=== PATIENT | female | born 1975 | race Asian ===

== ENCOUNTER 2020-11-08 08:06 | Day surgery (SDC) | payer OTHER ==
[2020-11-08 08:12] LABS: Specific Gravity 1.025 (1.005-1.030); Urine Appearance CLEAR; Urine Bilirubin NEGATIVE (NEG); Urine Blood NEGATIVE (NEG); Urine Color YELLOW; Urine Glucose NEGATIVE (NEG); Urine Microscopic Reflex NO UMIC; Urine Protein NEGATIVE (NEG); Urine Specific Gravity 1.025 (1.005-1.030); Urine Urobilinogen 0.2 mg/dL (0.2-1.0)
--- OUTSIDE RECORDS SUMMARY | 2020-11-08 08:12 | XMS REPORT | Clinical Summary ---
:1975 Author Organization [facility] Address [address] [place] [address] Care Team Providers Name Role Phone Florian Redd MD Primary Care Provider Allergies No Known Active Allergies Medications Medication Sig Dispensed Refills Start Date End Date Status etonogestrel-ethinyl 0 11/13/2019 Active estradiol (NUVARING) 0.12-0.015 mg/24 hr vaginal ring triamcinolone Apply to affected 15 g 0 12/27/2019 Active (KENALOG) 0.1 % cream area twice daily. etonogestreL-ethinyl NuvaRing 0.12 mg-0.015 mg/24 hr vaginal 0 Active estradioL (NUVARING) INSERT ONE RING VAGINALLY UTD 0.12-0.015 mg/24 hr vaginal ring ibuprofen-famotidine Duexis 800 mg-26.6 mg tablet 0 Active (DUEXIS) 800-26.6 mg Take 1 tablet 3 times a day by oral route as nee ded. tablet atorvastatin daily. 0 Active (LIPITOR) 10 MG tablet terconazole (TERAZOL 0 12/27/2019 Active 7) 0.4 % vaginal cream triamcinolone 0 12/27/2019 Activ e (KENALOG) 0.1 % cream vitamin B complex (B Take by mouth. 0 Active COMPLEX-VITAMIN B12 ORAL) BIOTIN ORAL Take by mouth. 0 Act adama docosahexaenoic Take by mouth. 0 Active acid/epa (FISH OIL ORAL) etonogestreL-ethinyl Insert 1 ring 1 each 11 01/16/2020 Active estradioL (NUVARING) intravaginally and 0.12-0.015 mg/[address] for vaginal ring 3 consecutive weeks, then remove for 1 week. Insert new ring afterwards. terconazole (TERAZOL Insert 1 applicator 45 g 0 0 7) 0.4 % vaginal into the vagina 0 cream nightly for 7 days. fluconazole Take 1 tablet (150 2 tablet 0 01/16/2020 01/16/20 2 (DIFLUCAN) 150 MG mg total) by mouth 0 tablet once for 1 dose. May repeat an additional dose in 1 week, if symptoms persist. amoxicillin-pot Take 1 tablet (500 14 tablet 0 01/20/2020 clavulanate mg total) by mouth 0 (AUGMENTIN) 500-125 2 (two) times a day mg per tablet for 7 days. ciprofloxacin (CIPRO) Take 1 tablet (500 14 tablet 0 0 500 MG tablet mg total) by mouth 0 2 (two) times a day for 7 days. phenazopyridine Take 1 tablet (200 6 tablet 0 02/07/202001/21 (PYRIDIUM) 200 MG mg total) by mouth 0 tablet 3 (three) times a day as needed for bladder spasms for up to 2 days. Active Problems No known active problems Encounters Date Type Specialty Care Team Description 08/08/2020 Hospital Encounter Radiology Keila Brambila DO 08/08/2020 Travel 07/31/2020 Travel 02/07/2020 Office Visit Obstetrics and Audi Pagan Urinary tract infection with hematuria, site unspecified (Primary Dx); Gynecology MD Alexi Dysuria 02/07/2020 Travel 01/20/2020 Orders Only Obstetrics and Keila Brambila DO Gynecology 01/16/2020 Office Visit Obstetrics and Keila Brambila DO Encounter f or annual routine gynecological examination (Primary Dx); Gynecology Breast cancer s creening by mammogram; Encounter for s urveillance of vaginal ring hormonal contraceptive device; Dysuria 12/27/2019 Office Visit Obstetrics and Keila Brambila DO Vaginal irr itation (Primary Dx); Gynecology Acute vaginitis ; Painful coitus, female; Dysuria after 11/08/2019 Surgical History Surgery Date Site/Laterality Comments AUGMENTATION, BREAST, WITH PROSTHETIC IMPLANT Medical History Medical History Date Comments High cholesterol Family History Medical History Relation Name Comments Hyperlipidemia Father Hypertension Father Hyperlipidemia Mother Hypertension Mother Relation Name Status Comments Father Alive Mother Alive Social History Tobacco Use Types Packs/Day Years Used Date Never Smoker Smokeless Tobacco: Never Used Alcohol Use Drinks/Week oz/Week Comments Never Alcohol Habits Answer Date Recorded How often do you have a drink containing alcohol? Never 12/27/2019 How many drinks containing alcohol do you have on a typical Not asked day when you are drinking? How often do you have six or more drinks on one occasion? No t asked Sex Assigned at Date Recorded Not on file Obstetrics History Grav Para Term Pre Abrt (TAB) (SAB) (Ect) Mult Lvng Comments 4 4 4 4 Date Outcome GA Total Labor/2nd/3rd Weight Sex Delivery Anes PTL Jessica A 1 A5 Name Clin Labor Term Term Term Term Last Filed Vital Signs Vital Sign Reading Time Taken Comments Blood Pressure 126/83 02/07/2020 3:20 PM CDT Pulse 85 01/16/2020 8:48 AM WEB ADMINISTRATOR Temperature - - Respiratory Rate 14 01/16/2020 8:48 AM WEB ADMINISTRATOR Oxygen Saturation - - Inhaled Oxygen Concentration - - Weight 61.2 kg (135 lb) 02/07/2020 3:20 PM CDT Height 157.5 cm (5' 2") 02/07/2020 3:20 PM CDT Body Mass Index 24.69 02/07/2020 3:20 PM CDT Plan of Treatment Health Maintenance Due Date Last Done Comments COVID-19 VACCINE (#1) 1990 INFLUENZA VACCINE 06/23/2020 CERVICAL CANCER SCREENING 01/16/2023 01/16/2020 Procedures Procedure Name Priority Date/Time Associated Comments Diagnosis MAMMO BREAST SCREEN Routine 08/08/2020 12:09 Breast cancer Res ults for this TOMOSYNTHESIS PM CDT screening by procedure are in BILATERAL mammogram the results section. URINALYSIS, AUTOMATED Routine 02/07/2020 3:33 Urinary tract R esults for this WITH MICROSCOPY PM CDT infection with procedure are in hematuria, site the results unspecified section. URINE CULTURE Routine 02/07/2020 3:33 Urinary tract Results f or this PM CDT infection with procedure are in hematuria, site the results unspecified section. CHLAMYDIA/N. Routine 01/16/2020 10:44 Results for this GONORRHOEAE RNA, TMA AM WEB ADMINISTRATOR procedu re are in the results section. THINPREP TIS PAP Routine 01/16/2020 10:44 Results for this REFLEX HPV MRNA E6/E7 AM WEB ADMINISTRATOR proced ure are in the results section. URINALYSIS, COMPLETE, Routine 01/16/2020 9:48 Dysuria Re sults for this WITH REFLEX TO CULTURE AM WEB ADMINISTRATOR proce dure are in the results section. URINE CULTURE Routine 01/16/2020 9:48 Results fo r this AM WEB ADMINISTRATOR procedure are i n the results section. URINE CULTURE SCREEN Routine 01/16/2020 9:48 Res ults for this RESULT AM WEB ADMINISTRATOR procedure are i n the results section. POC URINALYSIS Routine 01/16/2020 9:07 Dysuria Results f or this DIPSTICK AM WEB ADMINISTRATOR procedure are i n the results section. SURESWAB(R), Routine 12/27/2019 5:22 Results for this CANDIDIASIS, PCR PM WEB ADMINISTRATOR procedure a re in (REFLEX) the results section. SURESWAB(R) Routine 12/27/2019 5:22 Results for this TRICHOMONAS VAGINALIS PM WEB ADMINISTRATOR proced ure are in RNA, QL, TMA the results section. SURESWAB(R) BACTERIAL Routine 12/27/2019 5:22 Re sults for this VAGINOSIS DNA, QN, PCR PM WEB ADMINISTRATOR proce dure are in (REFLEX) the results section. CHLAMYDIA/N. Routine 12/27/2019 5:22 Results for this GONORRHOEAE RNA, TMA PM WEB ADMINISTRATOR procedu re are in (REFLEX) the results section. URINALYSIS, COMPLETE, Routine 12/27/2019 5:04 Dysuria Re sults for this WITH REFLEX TO CULTURE PM WEB ADMINISTRATOR proce dure are in the results section. URINE CULTURE Routine 12/27/2019 5:04 Results fo r this PM WEB ADMINISTRATOR procedure are i n the results section. URINE CULTURE SCREEN Routine 12/27/2019 5:04 Res ults for this RESULT PM WEB ADMINISTRATOR procedure are i n the results section. POC URINALYSIS Routine 12/27/2019 2:56 Dysuria Results f or this DIPSTICK PM WEB ADMINISTRATOR procedure are i n the results section. after 11/08/2019 Results Mammo Breast Screen Tomosynthesis Bilateral (08/08/2020 12:09 PM CDT) Specimen Impressions Performed At There is no mammographic evidence of mal ignancy. HM RADIANT Continued monitoring of the clinical examination and annual mammography in 1 year is recommended. BI-RADS Category 1: Negative Workstation Name: [id number] A NEGATIVE X-RAY REPORT SHOULD NOT DELAY BIOPSY IF A D OMINANT OR CLINICALLY SUSPICIOUS MASS IS PRESENT. NOT ALL CANCERS ARE IDENTIFIED BY X-RAY. Narrative Performed At [facility] Bilateral Tomosynthesis Screening HISTORY: Patient is 45 years old and is seen for screening. The patient has a history of bilateral Implants/Augmentation at age 28. The patient has no family history of breast cancer. The patient has no cu rrent palpable breast complaints. FILMS COMPARED: No prior imaging studies are available f or comparison. MAMMOGRAM FINDINGS: The breast tissue is heterogeneously dense, which may obscure detection of small masses. There are bilateral silicone gel implant s. No suspicious masses, calcifications or other abnormalities are seen. Procedure Note Interface, Radiology Results Incoming - 08/08/2020 3:35 PM CDT PROCEDURE: Bilateral Tomosynthesis Screening HISTORY: Patient is 45 years old and is seen for screening. The patient has a history of bilateral Implants/Augmentation at age 28. The patient has no family history of breast cancer. The patient has no current palpable breast complaints. FILMS COMPARED: No prior imaging studies are available f or comparison. MAMMOGRAM FINDINGS: The breast tissue is heterogeneously den se, which may obscure detection of small masses. There are bilateral silicone gel implant s. No suspicious masses, calcifications or other abnormalities are seen. IMPRESSION: There is no mammographic evidence of mal ignancy. Continued monitoring of the clinical exa mination and annual mammography in 1 year is recommended. BI-RADS Category 1: Negative Workstation Name: [id number] A NEGATIVE X-RAY REPORT SHOULD NOT DELAY BIOPSY IF A DOMINANT OR CLINICALLY SUSPICIOUS MASS IS PRESENT. NOT ALL CANCERS ARE IDENTIFIED BY X-RAY. Performing Organization Address City/State/ZIP Code Phon e Number [facility] [address] [place] [address] Urinalysis, automated with microscopy (02/07/2020 3:33 PM CDT) Color, UA YELLOW YELLOW [facility] [place] Appearance CLOUDY (A) CLEAR [facility] [place] Specific gravity, 1.007 1.001 - 1.035 [facility] urine [place] pH, urine 7.5 5.0 - 8.0 [facility] [place] Glucose, urine NEGATIVE NEGATIVE [facility] [place] Bilirubin, UA NEGATIVE NEGATIVE [facility] [place] Ketones, UA NEGATIVE NEGATIVE [facility] [place] Occult blood, urine 2+ (A) NEGATIVE [facility] [place] Protein, UA NEGATIVE NEGATIVE [facility] [place] Nitrite, UA NEGATIVE NEGATIVE [facility] [place] Leukocyte esterase, 3+ (A) NEGATIVE [facility] UA [place] WBC, UA 40-60 (A) < OR = 5 /HPF [facility] [place] RBC, UA 0-2 < OR = 2 /HPF [facility] [place] Squamous epithelial 0-5 < OR = 5 /HPF [facility] cells, UA [place] Bacteria, UA FEW (A) NONE SEEN /HPF [facility] [place] Hyaline casts, UA NONE SEEN NONE SEEN /LPF [facility] [place] Specimen Urine Resulting Agency Comment Performing Organization Information: Site ID: [id number] Name: [facility] Address: [address] [place] [phone] Director: Krzysztof Monreal Performing Organization Address City[place]State[place] [facility] [place] Number [facility] [place] [address] Urine culture (02/07/2020 3:33 PM CDT)Only the most recent of3 resultswithin the time period is included. Pathologist Sig nature Source URINE [facility] [place] Status FINAL [facility] [place] Result SEE NOTEComment: No [facility] Growth [place] Specimen Urine Resulting Agency Comment Performing Organization Information: Site ID: RGA Name: [facility] Address: [address] [place] [phone] Director: Krzysztof Monreal Performing Organization Address City/[facility] Phon e Number [facility] [place] [address] CHLAMYDIA/N. GONORRHOEAE RNA, TMA (01/16/2020 10:44 AM WEB ADMINISTRATOR) Chlamydia NOT DETECTED NOT DETECTED [facility] trachomatis RNA, [facility] TMA ING II Neisseria NOT DETECTED NOT DETECTED [facility] gonorrhoeae RNA, [facility] TMA ING II (Always message) [facility] Comment: [facility] The analytical performance characteristics of this ING II assay, when used to test SurePath(TM) specimens have b een determined by [facility]. The modifications hav e not been cleared or approved by the FDA. This assay villegas s been validated pursuant to the CLIA regulations and is used for clinical purposes. For additional information, please refer to https://education.[employer]/faq/BKM591 (This link is being provided for information/ educational purposes only.) Specimen Resulting Agency Comment Performing Organization Information: Site ID: [id number] Name: [facility] Address: [address] [place] [address] Director: Dr. Krzysztof shane Performing Organization Address City/[facility] Phon e Number [facility] [address] [facility] [place] [address] THINPREP TIS PAP REFLEX HPV mRNA E6/E7 (01/16/2020 10:44 AM WEB ADMINISTRATOR) Clinical information None given [facility] [place] Date of last menstrual NONE GIVEN [facility] [place] Prev. pap: NONE GIVEN [facility] [place] Prev. bx: NONE GIVEN [facility] [place] Source None given [facility] [place] Statement of adequacy [facility] Comment: DIAGNOSTICS Satisfactory for evaluation. [place] Endocervical/transformation zone component present. Age and/or menstrual status not provided Interpretation/result: Comment: Negative for [facility] intraepithelial [facility] lesion or malignancy. [facility] Comment [facility] Comment: DIAGNO[facility]ICS This Pap test has been evaluated with computer [facility]DE assisted technology. Tip of collection device in vial [employer] Welding Machine Operator [facility] Comment: DIAGNOSTICS AMT, CT(ASCP) [place] CT screening location: [place] [id number] Comment [facility] Comment: DI[facility]ICS EXPLANATORY NOTE: [place] The Pap is a screening test for cervical cancer. It is not a diagnostic test and is subject to false negative and false positive results. It is most reliable when a satisfactory sample, regularly obtained, is submitted with relevant clinical findings and history, and when the Pap result is evaluated along with historic and current clinical information. Specimen Resulting Agency Comment Performing Organization Information: Site ID: [id number] Name: [facility] Address: [address] [place] [phone] Director: Krzysztof Monreal Performing Organization Address City/[facility] Phon e Number [facility] [address] [address] URINALYSIS, COMPLETE, WITH REFLEX TO CULTURE (01/16/2020 9:48 AM WEB ADMINISTRATOR)Only the most recent of2 resultswithin the time period is included. Color, UA YELLOW YELLOW [facility] [place] Appearance SLIGHTLY CLOUDY CLEAR [facility] (A) [place] Specific gravity, 1.027 1.001 - 1.035 [facility] urine [place] pH, urine 6.0 5.0 - 8.0 [facility] [place] Glucose, urine NEGATIVE NEGATIVE [facility] [place] Bilirubin, UA NEGATIVE NEGATIVE [facility] [place] Ketones, UA NEGATIVE NEGATIVE [facility] [place] Occult blood, NEGATIVE NEGATIVE [facility] urine [place] Protein, UA NEGATIVE NEGATIVE [facility] [place] Nitrite, UA POSITIVE (A) NEGATIVE [facility] [place] Leukocyte TRACE (A) NEGATIVE [facility] esterase, UA [place] WBC, UA 0-5 < OR = 5 /HPF [facility] [place] RBC, UA NONE SEEN < OR = 2 /HPF [facility] [place] Squamous 10-20 (A) < OR = 5 /HPF [facility] epithelial cells, [place] UA Bacteria, UA FEW (A) NONE SEEN /HPF [facility] [place] Hyaline casts, UA NONE SEEN NONE SEEN /LPF [facility] [place] Comment FEW MUCOUS [facility] THREADS [place] Note: [facility] Comment: [place] This urine was analyzed for the presence of WBC, RBC, bacteria, casts, and other formed elements. Only those elements seen were reported. Specimen Urine Resulting Agency Comment Performing Organization Information: Site ID: [facility] Name: [facility] Address: [address] [place] [phone] Director: Krzysztof Monreal Performing Organization Address [facility] Phon [place] [address] Urine culture screen result (01/16/2020 9:48 AM WEB ADMINISTRATOR)Only the most recent of2 resultswithin the time period is included. Pathologist Sig nature Reflex CULTURE INDICATED - [facility] RESULTS TO FOLLOW [place] Specimen Resulting Agency Comment Performing Organization Information: Site ID: [facility] Name: [facility] Address: [address] [place] [phone] Director: Krzysztof Monreal Performing Organization Address [facility] Ph[place] [address] POC urinalysis dipstick (01/16/2020 9:07 AM WEB ADMINISTRATOR)Only the most recent of2 resultswithin the time period is included. Pathologist Sig nature Glucose urine, POC Negative Negative Bilirubin urine, POC Negative Negative Ketones urine, POC 1+ (A) Negative Specific gravity urine, 1.020 1.005 - 1.030 POC Blood urine, POC Large (A) Negative pH urine, POC 6.0 5.0, 5.5, 6.0, 6.5, 7.0, 7.5, 8.0, 8.5 Protein urine, POC Negative Negative Urobilinogen urine, POC <2.0 <2.0 Nitrite urine, POC Negative Negative Leukocyte esterase Negative Negative urine, POC Specimen Urine SURESWAB(R), CANDIDIASIS, PCR (12/27/2019 5:22 PM WEB ADMINISTRATOR) C. albicans, DNA DETECTED (A) [facility] C. glabrata, DNA NOT DETECTED [facility] C. tropicalis, NOT DETECTED [facility] DNA C. parapsilosis, NOT DETECTED [facility] DNA Comment: REFERENCE RANGE: NOT DETECTED Methodology: Real-Time PCR This test was developed and its analytical performance characteristics have been determined by [facility]. It has not been cleared or approve d by FDA. This assay has been validated pursuant to the CLIA regulations and is used for clinical purposes. Specimen Resulting Agency Comment Performing Organization Information: Site ID: [id number] Name: [facility] Address: [address] [place] [phone] Director: Emmett Lozano MD Performing Organization Address City/[facility] Phon e Number [facility] [facility] [employer] [address] [place] [address] [phone] SURESWAB(R) TRICHOMONAS VAGINALIS RNA, QL, TMA (Reflex) (12/27/2019 5:22 PM WEB ADMINISTRATOR) Sureswab(r) NOT DETECTED [facility] trichomonas Comment: vaginalis RNA, QL, TMA REFERENCE RANGE: NOT DETECTED Methodology: Retail Financial Analyst Mediated Amplification (TMA ) For additional information, please refer to http://education.[employer]/faq/Jer garza (This link is being provided for informational/educati onal purposes only.) Specimen Resulting Agency Comment Performing Organization Information: Site ID: [id number] Name: [facility] Address: [address] [place] [phone] Director: Emmett Lozano MD Performing Organization Address City/State/ZIP Code Phon e Number [facility] [address] [place] [address] [facility](R) BACTERIAL VAGINOSIS DNA, QN, PCR (12/27/2019 5:22 PM WEB ADMINISTRATOR) Lactobacillus NOT DETECTED Log [facility] species (cells/mL) Atopobium vaginae NOT DETECTED Log [facility] (cells/mL) Megasphaera species NOT DETECTED Log [facility] (cells/mL) Gardnerella NOT DETECTED Log [facility] vaginalis (cells/mL) BV category NOT SUPPORTIVE [facility] Comment: REFERENCE RANGE: BV Category: NOT SUPPORTIVE Methodology: Real-Time PCR NOT SUPPORTIVE OF BV: The pattern of results is not supportive of a diagnosis of BV: 1) Presence of Lactobacillus spp., G. vaginalis levels less than 6.0 log cells/mL, and absence of A. vaginae and Megasphaer a spp; or 2) Absence of all targeted organisms; or 3) Ab sence of Lactobacillus spp. plus G. vaginalis detected at le vels less than 6.0 log cells/mL and absence of A. vaginae a nd Megasphaera spp. EQUIVOCAL FOR BV: The pattern of results is neither supportive nor not supportive of a diagnosis of BV. The patient may be in transition into or out of BV: Presence of Lactobacillus spp. plus G. vaginalis (greater or equal to 6.0 log cells/mL) and/or one of the other BV-associated pathogens. SUPPORTIVE OF BV: The pattern of results is supportive of a diagnosis of BV: Absence of Lactobacillus spp. and presence of G. vaginalis greater than or equal to 6.0 log cells/mL and/or one or both of the other BV-associated pathogens. Concentration for Lactobacilli (L. acidophilus/crispat us, L. jensenii) are collectively reported under the term "Lactobacillus spp.", as these species are among the peroxide producing Lactobacilli thought to be protecti ve against bacterial vaginosis. Atopobium vaginae, Megasp haera spp., and Gardnerella (greater than 6.0 log cells/mL) have been associated with vaginosis when present in the abs ence of peroxidase producing Lactobacilli. This test was developed and its analytical performance characteristics have been determined by [facility]. It has not been cleared or approve d by FDA. This assay has been validated pursuant to the CLIA regulations and is used for clinical purposes. Specimen Resulting Agency Comment Performing Organization Information: Site ID: [id number] Name: [facility] Address: [address] [place] [phone] Director: Emmett Lozano MD Performing Organization Address [facility] Phon e Number [facility] [address] [place] [address] [phone] CHLAMYDIA/N. GONORRHOEAE RNA, TMA (12/27/2019 5:22 PM WEB ADMINISTRATOR) Chlamydia NOT DETECTED [facility] trachomatis RNA, TMA Neisseria NOT DETECTED [facility] gonorrhoeae RNA, Comment: TMA REFERENCE RANGE: NOT DETECTED Methodology: Retail Financial Analyst Mediated Amplification (TMA ) to detect RNA. The analytical performance characteristics of this ass ay, when used to test SurePath(TM) specimens have been det ermined by [facility]. The modificat ions have not been cleared or approved by the FDA. This ass ay has been validated pursuant to the CLIA regulations an d is used for clinical purposes. For additional information, please refer to https://education.[employer]/faq/JSA485 (This link is being provided for informational/ educational purposes only.) Specimen Resulting Agency Comment Performing Organization Information: Site ID: [id number] Name: [facility] Address: [address] [place] [phone] Director: Emmett Lozano MD Performing Organization Address [facility] Phon e Number [employer] [facility] [employer] [address] [place] [address] [phone] after 11/08/2019 Advance Directives For more information, please contact: [phone] Type Date Recorded Patient Chief Science Officer Explanati on Advance Directives, Living Will and Medical Power of Terrestrial Ecologist
--- OUTSIDE RECORDS SUMMARY | 2020-11-08 08:13 | XMS REPORT | Continuity of Care Document ---
:1975 Author Organization [facility] t Address [address] [place] [address] Care Team Providers Name Role Phone Florian Redd MD Primary Care Physician Patty CARUSO Attending Clinician Alexi Gray MD Attending Clinician Payers Payer Name Policy Type Policy Effective Date Expiration Date [facility] Number BCBSBCBS CHOICE [id number] 2015 Dante PPO/FEDERAL 00:00:00 Tenriism EMPL [id number] 2015-Presen tPPO Problems This patient has no known problems. Allergies, Adverse Reactions, Alerts This patient has no known allergies or adverse reactions. Family History Family Member Diagnosis Comments Start Date Stop Date Source Natural father Hyperlipidemia [place] [facility] Natural father Hypertension Dante Tenriism Natural mother Hyperlipidemia [place] [facility] Natural mother Hypertension Dante Tenri[facility] Social History Social Habit Start Date Stop Date Quantity Comments Source History [facility] Meth odist Alcohol Std Drinks History [facility] Meth odist Alcohol Binge Sex Assigned At [facility] ethodist Tobacco use and 2020-02-07 2020-02-07 Never used [facility] ethodist exposure 00:00:00 00:00:00 Alcohol intake 2020-02-07 2020-02-07 [facility] thodist 00:00:00 00:00:00 non-drinker (finding) History [facility] 2019-12-27 2019-12-27 1 Dante Meth odist Alcohol Frequency 00:00:00 00:00:00 Smoking Status Start Date Stop Date Source Never smoker Dante Methodis t Medications Ordered Filled Start Stop Current Ordering Indication Dosage Frequency Signature Comments Components Source Medication Medication Date Date Medication? Clinician (SIG) Name Name BIOTIN ORAL 2020-0 Yes Take by Ananyasabrina harmon 3-17 mouth. Methodi 15:24: st 17 docosahexae 2020-0 Yes Take by Ananya cameronkaushik noic 3-17 mouth. Methodi acid/epa 15:24: st (FISH OIL 17 ORAL) ciprofloxac 2020-0 2020- No 500mg Q.5D Take 1 Kevyn williamson in (CIPRO) 317 03-24 tablet Method i 500 MG 00:00: 23:59 ([address] tablet 00 :00 total) by mouth 2 (two) times a day for 7 days. phenazopyri 2020-0 2020- No 200mg Q.[id number] Take 1 [facility] dine 17 -19 [id number] tablet Method i (PYRIDIUM) 00:00: 23:59 3D ([address] 200 MG 00 :00 total) by tablet mouth 3 (three) times a day as needed for bladder spasms for up to 2 days. amoxicillin 2019-0 2020- No 500mg Q.5D Take 1 Kevyn williamson -pot 2-28 -06 tablet Methodi clavulanate 00:00: 23:59 ([address] (AUGMENTIN) 00 :00 total) by 500-125 mg mouth 2 per tablet (two) times a day for 7 days. etonogestre 2020-0 Yes NuvaRing [place] L-ethinyl 2-24 0.12 Methodi estradioL 08:54: mg-0.015 st (NUVARING) 34 mg/24 hr 0.12-0.015 vaginal mg/24 hr INSERT ONE vaginal RING ring VAGINALLY UTD ibuprofen-f 2020-0 Yes Duexis 800 [place] amotidine 2-24 mg-26.6 mg Meth marce (DUEXIS) 08:54: tablet st 800-26.6 mg 34 Take 1 tablet tablet 3 times a day by oral route as needed. atorvastati 2020-0 Yes Q24H daily. [place] (LIPITOR) 2-24 Methodi 10 MG 08:54: st tablet 34 vitamin B 2020-0 Yes Take by Raquel on complex (B 2-24 mouth. Methodi COMPLEX-VIT 08:54: st SHEPARD B12 34 ORAL) etonogestre 2020-0 Yes Insert 1 [place] L-ethinyl 2-24 ring Methodi estradioL 00:00: intravagin st (NUVARING) 00 ally and 0.12-0.015 leave in mg/[address] for vaginal 3 ring consecutiv e weeks, then remove for 1 week. Insert new ring afterwards . fluconazole 2020- No 150mg Take 1 Kevyn williamson (DIFLUCAN) 2-24 02-24 tablet Method i 150 MG 00:00: 23:59 ([address] tablet 00 :00 total) by mouth once for 1 dose. May repeat an additional dose in 1 week, if symptoms persist. triamcinolo 2019- Yes Apply to Kevyn williamson ne 2-04 affected Methodi (KENALOG) 00:00: area twice st 0.1 % cream 00 daily. terconazole Yes Cristian faulkner (TERAZOL 7) 2-04 Methodi 0.4 % 00:00: st vaginal 00 cream triamcinolo 2019- Yes Cristian faulkner ne 2-04 Methodi (KENALOG) 00:00: st 0.1 % cream 00 terconazole 2020- No 1{appli QD Insert 1 [place] (TERAZOL 7) 12-27 cator} applicator Methodi 0.4 % 00:00: 23:[address] vaginal 00 :00 vagina cream nightly for 7 days. etonogestre 2018-11 Yes Cristian faulkner l-ethinyl 2-22 Methodi estradiol 00:00: st (NUVARING) 00 0.12-0.015 mg/24 hr vaginal ring Vital Signs Vital Name Observation Time Observation Value Comments Source Systolic blood 2020-02-07 15:20:00 126 mm[Hg] Cristian n Tenriism pressure Diastolic blood 2020-02-07 15:20:00 83 mm[Hg] Raquel on Tenriism pressure Body height 2020-02-07 15:20:00 157.5 cm Nnamdi Garcia Body weight 2020-02-07 15:20:00 61.236 kg Nnamdi Garcia BMI 2020-02-07 15:20:00 24.69 kg/m2 Nnamdi Garcia Heart rate 2020-01-16 08:48:00 85 /min Nnamdi Garcia Respiratory rate 2020-01-16 08:48:00 14 /min Rikki Garcia Procedures Procedure Date / Time Performed Performing Clinician Sourc e MAMMO BREAST SCREEN 2020-08-08 12:09:31 Keila Brambila TOMOSYNTHESIS BILATERAL URINE CULTURE 2020-02-07 15:33:00 Latasha Audi Alexi Rodriguez ethodist URINALYSIS, AUTOMATED 2020-02-07 15:33:00 Latasha Audi Truong Ananya Garcia WITH MICROSCOPY THINPREP TIS PAP REFLEX 2020-01-16 10:44:00 Keila Brambila HPV MRNA E6/E7 CHLAMYDIA/N. GONORRHOEAE 2020-01-16 10:44:00 Keila Brambila RNA, TMA URINE CULTURE 2020-01-16 09:48:00 Keila Brambila odagueda URINALYSIS, COMPLETE, 2020-01-16 09:48:00 Keila Brambila WITH REFLEX TO CULTURE POC URINALYSIS DIPSTICK 2020-01-16 09:07:00 Keila Brmabila CHLAMYDIA/N. GONORRHOEAE 2019-12-27 17:22:00 Keila Brambila RNA, TMA (REFLEX) SURESWAB(R) BACTERIAL 2019-12-27 17:22:00 Keila Brambila VAGINOSIS DNA, QN, PCR (REFLEX) SURESWAB(R) TRICHOMONAS 2019-12-27 17:22:00 Keila Brambila VAGINALIS RNA, QL, TMA SURESWAB(R), CANDIDIASIS, 2019-12-27 17:22:00 Keila Brambila PCR (REFLEX) URINE CULTURE 2019-12-27 17:04:00 Keila Brambila odagueda URINALYSIS, COMPLETE, 2019-12-27 17:04:00 Keila Brambila WITH REFLEX TO CULTURE POC URINALYSIS DIPSTICK 2019-12-27 14:56:00 Keila Brambila Plan of Care Planned Activity Planned Date Details Comments Source Future Scheduled 2023-01-16 Screening for [facility] Me thodist Test 00:00:00 malignant neoplasm of cervix (procedure) [code = 283102275] Future Scheduled 2020-06-23 INFLUENZA VACCINE [place] [facility] Test 00:00:00 [code = INFLUENZA VACCINE] Future Scheduled 1990 COVID-19 VACCINE Dante Tenriism Test 00:00:00 (#1) [code = COVID-19 VACCINE (#1)] Encounters Start End Encounter Admission Attending Care Care Encounter Source Date/Time Date/Time Type Type Clinicians Facility Department ID 2020-08-08 2020-08-08 Outpatient KEILA BRAMBILA [facility] [id number] Dante 00:00:00 00:00:[address] 2020-02-07 2020-02-07 Outpatient GRAY, [facility] [id number] Dante 00:00:00 00:00:00 AUDI [address] Results Test Description Test Time Test Comments Results Result [facility] e Comments Mammo Breast 2020-07-24 There is no Dante Screen 6 mammographic Tenriism Tomosynthesis 15:35:02 evidence of Bilateral malignancy. Continued monitoring of the clinical examination and annual mammography in 1 year is recommended. BI-RADS Category 1:Negative Workstation Name: [id number] A NEGATIVE X-RAY REPORT SHOULD NOT DELAY BIOPSY IF A DOMINANT OR CLINICALLY SUSPICIOUS MASS IS PRESENT. NOT ALL CANCERS ARE IDENTIFIED BY X-RAY. [facility], Radiology Results 08/08/2020 3:35 PM CDTPROCEDURE:Bilater al Tomosynthesis Screening HISTORY:Patient is 45 years old and is seen for screening. The patient has a history of bilateral Implants/Augmentatio n at age 28. The patient has no family history of breast cancer. The patient has no current palpable breast complaints. FILMS COMPARED:No prior imaging studies are available for comparison. MAMMOGRAM FINDINGS:The breast tissue is heterogeneously dense, which may obscure detection of small masses. There are bilateral silicone gel implants. No suspicious masses, calcifications or other abnormalities are seen. IMPRESSION:There is no mammographic evidence of malignancy. Continued monitoring of the clinical examination and annual mammography in 1 year is recommended. BI-RADS Category 1:Negative Workstation Name: [id number] A NEGATIVE X-RAY REPORT SHOULD NOT DELAY BIOPSY IF A DOMINANT OR CLINICALLY SUSPICIOUS MASS IS PRESENT. NOT ALL CANCERS ARE IDENTIFIED BY X-RAY. Urine culture 2020-02-08 23:53:00 Test Item Value Reference Range Interpretation Comme nts Source (test code = 92259-1) URINE Status (test code = 8251-1) FINAL Result (test code = 630-4) SEE NOTE N o Growth RAC (test code = RAC) Performing Organization Information: Site ID: RGA Name: [facility] Address: [address] [place] [phone] Director: Krzysztof Monreal Dante MethodistUrinalysis, automated with [id number] 23:53:00 Test Item Value Reference Range Interpretation Comments Color, UA (test code = YELLOW YELLOW 5778-6) Appearance (test code = CLOUDY CLEAR A 5767-9) Specific gravity, urine 1.007 1.001-1.035 (test code = 5811-5) pH, urine (test code = 7.5 5.0-8.0 5803-2) Glucose, urine (test NEGATIVE NEGATIVE code = 58921-0) Bilirubin, UA (test code NEGATIVE NEGATIVE = 5770-3) Ketones, UA (test code = NEGATIVE NEGATIVE 2514-8) Occult blood, urine 2+ NEGATIVE A (test code = 5794-3) Protein, UA (test code = NEGATIVE NEGATIVE 05528-7) Nitrite, UA (test code = NEGATIVE NEGATIVE 5802-4) Leukocyte esterase, UA 3+ NEGATIVE A (test code = 5799-2) WBC, UA (test code = 40-60 < OR = 5 /HPF A 5821-4) RBC, UA (test code = 0-2 < OR = 2 /HPF 98877-9) Squamous epithelial 0-5 < OR = 5 /HPF cells, UA (test code = 71085-8) Bacteria, UA (test code FEW NONE SEEN /HPF A = 5769-5) Hyaline casts, UA (test NONE SEEN NONE SEEN /LPF code = 5796-8) RAC (test code = RAC) Performing Organization Information: Site ID: RGA Name: [facility] Address: [address] [place] [address] Director: Krzysztof Monreal Lab Interpretation (test Abnormal code = 34892-5) Dante MethodistUrine culture screen [id number] 07:35:00 Test Item Value Reference Range Interpretation Comments Reflex (test code = CULTURE INDICATED - 630-4) RESULTS TO FOLLOW RAC (test code = Performing Organization RAC) Information: Site ID: RGA Name: [facility] Address: [address] [place] [address] Director: Krzysztof Monreal Dante MethodistURINALYSIS, COMPLETE, WITH REFLEX TO [id number] 07:35:00 Test Item Value Reference Range Interpretation Comments Color, UA (test code YELLOW YELLOW = 5778-6) Appearance (test code SLIGHTLY CLOUDY CLEAR A = 5767-9) Specific gravity, 1.027 1.001-1.035 urine (test code = 5811-5) pH, urine (test code 6.0 5.0-8.0 = 5803-2) Glucose, urine (test NEGATIVE NEGATIVE code = 24960-6) Bilirubin, UA (test NEGATIVE NEGATIVE code = 5770-3) Ketones, UA (test NEGATIVE NEGATIVE code = 2514-8) Occult blood, urine NEGATIVE NEGATIVE (test code = 5794-3) Protein, UA (test NEGATIVE NEGATIVE code = 95487-0) Nitrite, UA (test POSITIVE NEGATIVE A code = 5802-4) Leukocyte esterase, TRACE NEGATIVE A UA (test code = 5799-2) WBC, UA (test code = 0-5 < OR = 5 /HPF 5821-4) RBC, UA (test code = NONE SEEN < OR = 2 /HPF 78924-3) Squamous epithelial 10-20 < OR = 5 /HPF A cells, UA (test code = 04497-4) Bacteria, UA (test FEW NONE SEEN /HPF A code = 5769-5) Hyaline casts, UA NONE SEEN NONE SEEN /LPF (test code = 5796-8) Note: (test code = FEW MUCOUS THREADS Thi s urine was 8251-1) analyzed for the presence of WBC, RBC, bacteria, casts, and other formed elements. Only those elements seen were reported. RAC (test code = RAC) Performing Organization Information: Site ID: RGA Name: [facility] Address: [address] [place] [phone] Director: Krzysztof Monreal Lab Interpretation Abnormal (test code = 43227-1) Dante MethodistTHINPREP TIS PAP REFLEX HPV mRNA [id number] 10:45:00 Test Item Value Reference Interpretation Comments Range Clinical information None given (test code = 35293-3) Date of last NONE GIVEN menstrual period (test code = 8665-2) Prev. pap: (test code NONE GIVEN = 59074-5) Prev. bx: (test code NONE GIVEN = 28961-2) Source (test code = None given ) Statement of adequacy Satisf actory for (test code = 86867-4) evalua tion.Endocervi nazario/transformat ion zone componentpresen t.Age and/or menstrua l status not prov ided Interpretation/result Negati ve for : (test code = intraepitheli al 12433-9) lesion or malignancy. Comment (test code = This Pa p test has ) been evaluated with [employer] technology.Tip of collection john ce in vial Computer Science Teacher FAUSTO SHORT(ASC P)CT (test code = 86407-1) screen ing location: [address], [place] [address] 2 Comment (test code = EXPLANA TORY NOTE: 0535714) The Pap is a screening test for cervical cancer . It is not a diagno stic test and is sub ject to false negati ve and false posit adama results. It is most reliable when a satisfactory sa mple, regularly obtai martha, is submitted wi th relevant clinic al findings and history, and wh en the Pap result is evaluated along with historic and cu rrent clinical information. CYNTHIA (test code = RAC) Performing Organization Information: Site ID: RGA Name: [facility] Address: [address] [place] [phone] Director: Krzysztof EpsteinAMYDIA/N. GONORRHOEAE RNA, [id number] 10:45:00 Test Item Value Reference Range Interpretation Comments Chlamydia NOT DETECTED NOT DETECTED trachomatis RNA, TMA (test code = 28407-3) Neisseria NOT DETECTED NOT DETECTED gonorrhoeae RNA, TMA (test code = 77646-6) (Always message) The analyti nazario (test code = performance 2647) characteristics of thisassay, when used to test SurePat h(TM) specimens have beendetermined by [facility]. The modificatio ns havenot been cl eared or approved by the FDA. This assay hasbeen validat ed pursuant to the CLIA regulations and isused for clin ical purposes. For additional information, pl ease refer tohttps://educa Smart Energy Instrumentson. DataRPM /faq/HRD477([facility] s link is being provided for information/edu catio nal purposes on ly.) RAC (test code = Performing RAC) Organization Information: Site ID: IG Name: [facility] Address: [address] [place] [phone] Director: Dr. Krzysztof Monreal [facility] [id number] 09:07:00 Test Item Value Reference Range Interpretation Comments Glucose urine, POC (test code Negative Negative = 5090688) Bilirubin urine, POC (test Negative Negative code = 2963192) Ketones urine, POC (test code 1+ Negative A = 5815393) Specific gravity urine, POC 1.020 1.005-1.030 (test code = 9937364) Blood urine, POC (test code = Large Negative A 3867225) pH urine, POC (test code = 6.0 5.0, 5.5, 6.0, 6.5, 2668097) 7.0, 7.5, 8.0, 8.5 Protein urine, POC (test code Negative Negative = 4524990) Urobilinogen urine, POC (test <2.0 <2.0 code = 3732767) Nitrite urine, POC (test code Negative Negative = 5259855) Leukocyte esterase urine, POC Negative Negative (test code = 6622991) Lab Interpretation (test code Abnormal = 38631-3) Dante MethodistCHLAMYDIA/N. GONORRHOEAE RNA, [id number] 07:55:00 Test Item Value Reference Interpretation Comments Range Chlamydia NOT DETECTED trachomatis RNA, TMA (test code = 57582-0) Neisseria NOT DETECTED REFERENCE RANG E: NOT gonorrhoeae RNA, DETECTED Me thodology: TMA (test code = Transcripti on Mediated 85083-1) Amplification ( TMA)to detect RNA. The analytical perf ormance characteristics of this assay,when used to test SurePat h(TM) specimens have been determinedby [facility]. The modificationsha ve not been cleared or approved by the FDA. This assayhas b een validated pursu ant to the CLIA regula tions andis used for clinical purpos es. For additional information, pl ease refer tohttps://tata caceres.[employer]. [employer]/faq /XZP844(This li nk is being provided for informational/e ducatio nal purposes on ly.) RAC (test code = Performing RAC) Organization Information: Site ID: TXC Name: [facility] Address: [address] [place] [phone] Director: Emmett Lozano MD [facility] CarleneFORT DEFI[facility] INDIAN HOSPITALMAHI(R) BACTERIAL VAGINOSIS DNA, QN, [id number] 07:55:00 Test Item Value Reference Interpretation Comments Range Lactobacillus NOT DETECTED Log species (test (cells/mL) code = 70603-8) Atopobium NOT DETECTED Log vaginae (test (cells/mL) code = 56616-1) Megasphaera NOT DETECTED Log species (test (cells/mL) code = 37383-9) Gardnerella NOT DETECTED Log vaginalis (test (cells/mL) code = 18182-0) BV category NOT SUPPORTIVE REFERENCE RA NGE: BV (test code = Category: NOT S UPPORTIVE 18586-2) Methodology: Re al-Time PCR NOT SUPPORTIVE OF BV: The pattern of resu lts is notsupportive o f a diagnosis of BV: 1) Prese nce ofLactobacillus spp., G. vaginalis level s less than 6.0log cells/mL , and absence of A. vaginae a nd Megasphaeraspp; or 2) Absence of all targeted organisms; or 3 ) Absenceof Lactobacillus s pp. plus G. vaginalis detec stephanie at levelsless than 6.0 log cells/mL and ab sence of A. vaginae andMega sphaera spp. EQUIVOCAL FOR B V: The pattern of resu lts is neithersupporti ve nor not supportive of a diagnosis of BV.The patient may be in transition into or out of BV:Presence of Lactobacillus spp. plus G. vaginalis(great er or equal to 6.0 log cell s/mL) and/or one ofthe other BV-associated p athogens. SUPPORTIVE OF B V: The pattern of resu lts is supportiveof a diagnosis of BV: Absence of Lactobacillus spp.and presenc e of G. vaginalis great er than or equal to6.0 log cells/mL and/or one or b oth of the otherBV-associa stephanie pathogens. Conc entration for Lactobacilli (L . acidophilus/cri spatus,L. jensenii) are c ollectively reported under the term"Lactobacil rima spp.", as these species a re among theperoxide pro ducing Lactobacilli th ought to be protectiveagain st bacterial vaginosis. Atop obium vaginae, Megasp haeraspp., and Gardnerella (greater than 6.0 log ce lls/mL) havebeen associ ated with vaginosis when present in the absenceof p eroxidase producing Lacto bacilli. This test was develo ped and its analytical performancechar acteristics have been deter mined by [facility]. It has not been cleared or appr ovedby FDA. This assay has been validated pursu ant to theSpectralmindat Your Image by Brooke and is used for clinic al purposes. RAC (test code = Performing RAC) Organization Information: Site ID: TXC Name: [facility] Address: [address] [place] [phone] Director: Emmett Lozano MD Dante MethodRivasURESWAB(R) TRICHOMONAS VAGINALIS RNA, QL, TMA (Reflex) 2020-01-05 07:55:00 Test Item Value Reference Range Interpretation Comments Sureswab(r) NOT DETECTED REFERENCE RANG E: trichomonas NOT DETECTED vaginalis RNA, QL, Methodolo gy: TMA (test code = [place] [address]-5) Mediated Amplification ( TMA) For additional information, pl ease refer tohttp://educat ion. Rogateostic s.co m/faq/Trichomon astm a(This link is being provided for informational/e duca tionalpurposes only.) RAC (test code = Performing RAC) Organization Information: Site ID: TXC Name: [facility] Address: [address] [place] [phone] Director: Emmett ConcepcionURESWAB(R), CANDIDIASIS, [id number] 07:55:00 Test Item Value Reference Interpretation Comments Range C. albicans, DNA DETECTED A (test code = 87877-4) C. glabrata, DNA NOT DETECTED (test code = 61205-7) C. tropicalis, NOT DETECTED DNA (test code = 56285-6) C. parapsilosis, NOT DETECTED REFERENCE RANGE: NOT DNA (test code = DETECTED Me thodology: 93679-8) Real-Time PCR T his test was developed and i ts analytical performancechar acteristics have been deter mined by [facility]. It has not been cleared or appr ovedby FDA. This assay has been validated pursu ant to theAPX LabsIA regulat ions and is used for clinic al purposes. RAC (test code = Performing RAC) Organization Information: Site ID: TXC Name: [facility] Address: [address] [place] [phone] Director: Emmett Lozano MD Lab Abnormal Interpretation (test code = 25439-0) Nnamdi Garcia
[2020-11-08 08:14] LABS: Absolute Lymphocytes (CBC) 2.4 K/uL (0.7-4.9); Basophils % 0.4 % (0-1.3); Hematocrit 44.8 % (36.0-45.0); Lymphocytes % 37.3 % (15.3-44.8); MPV 8.4 fL (7.6-11.3); RBC Red Blood Cell Count 4.92 M/uL (3.86-4.86)
--- NOTE | 2020-11-08 08:28 | RAD REPORT ---
EXAM DESCRIPTION: RAD - Chest Pa And Lat (2 Views) - 11/08/2020 8:06 am CLINICAL HISTORY: PRE OP Chest pain. COMPARISON: No comparisons FINDINGS: The lungs are clear. The heart is normal in size. No displaced fractures. IMPRESSION: No acute or concerning finding suspected.
[2020-11-08 08:46] VITALS: O2SAT 100
[2020-11-08] MEDS: Ringers Lactate 1,000 ML IV ONE ×2 (08:46→09:12)
[2020-11-08] MEDS ORDERED: FENTANYL CITR 250 MCG/5 ML ONE (08:53)
[2020-11-08] MEDS ORDERED: MIDAZOLAM HCL 2 MG/2 ML INJ ONE (08:53)
[2020-11-08] MEDS ORDERED: CEFAZOLIN/SWI 1gm 1 GM/10 ML SYR ONE (08:53)
[2020-11-08] MEDS ORDERED: propofoL 200 MG/20 ML VIAL IV ONE (08:53)
[2020-11-08] MEDS ORDERED: LIDOCAINE 2% MPF 5 ML VIAL ONE (08:53)
[2020-11-08] MEDS ORDERED: GLYCOPYRROLATE 0.2 MG/ML SYR ONE ×2 (08:53)
[2020-11-08] MEDS ORDERED: ROCURONIUM 50 MG/5 ML VIAL IV ONE ×2 (08:54→11:21)
[2020-11-08] MEDS ORDERED: SCOPOLAMINE HYDROBROMIDE PATCH TD ONE (09:22)
[2020-11-08] MEDS ORDERED: Phenylephrine HCl 10 MG/ML 1 ML VIAL ONE (09:55)
[2020-11-08] MEDS ORDERED: ONDANSETRON 4 MG/2 ML VIAL ONE ×2 (09:55→16:12)
[2020-11-08] MEDS ORDERED: dexAMETHasone 10 MG/ML VIAL ONE (10:09)
[2020-11-08] MEDS ORDERED: CEFAZOLIN SODIUM 1 GM/VIAL ONE (10:49)
[2020-11-08] MEDS ORDERED: NS 0.9% VIAL 40 ML ONE (10:49)
[2020-11-08] MEDS ORDERED: Ringers Lactate 1,000 ML IV ONE ×2 (10:50)
[2020-11-08] MEDS ORDERED: BACITRACIN 50000 UNIT VIAL ONE (10:50)
[2020-11-08] MEDS ORDERED: GENTAMICIN SULF 80 MG/2ML INJ ONE (10:50)
[2020-11-08] MEDS ORDERED: LIDOCAINE 1% W/EPI 1:100,000 10 ML VIAL ONE (10:50)
[2020-11-08] MEDS ORDERED: Mastisol Adhesive Liq ONE (10:50)
[2020-11-08] MEDS ORDERED: FENTANYL CITR 100 MCG/2 ML ONE (11:18)
[2020-11-08] MEDS ORDERED: MORPHINE 10 MG/ML VIAL ONE (12:57)
[2020-11-08] MEDS ORDERED: KETOROLAC 30 MG/ML INJ ONE (13:00)
[2020-11-08] MEDS ORDERED: CODEINE 30MG/APAP 300MG TAB PO ONE (15:05)
[2020-11-08] MEDS ORDERED: CODEINE 30MG/APAP 300MG TAB ONE (15:18)
[2020-11-08 15:26] VITALS: BP 122/76; TEMP 97.5
--- NOTE | 2020-11-08 15:45 | OP ---
Surgeon: Arsen Pack MD Preoperative Diagnosis: Breast descent, status post prepectoral implants. Postoperative Diagnosis: Breast descent, status post prepectoral implants. Procedure Performed: Explantation, breast lift. Anesthesia: General. Procedure In Detail: After satisfactory induction of general anesthesia, the chest was prepped with DuraPrep, dry sterile drapes placed in the usual manner. A 45 template was used to outline the right and left areolas. Then, a transverse curvilinear incision was made. An intervening skin was de- epithelialized with a dermabrader and EpiCut. Right side approached first. Electrocautery was used to elevate the flap, it was 1.5 cm in thickness and elevated towards the sternum, clavicle, anterior axillary line. the implant was removed with a smooth saline, weighed 300 g on the right. Dissected up to the clavicle, sternum, anterior axillary line. Then, the inferior incision made. The deep subcutaneous tissue was formed into a cone with 2-0 PDS and then straps were elevated at 12 o'clock, 1:30 and 3 o'clock position. The straps were then woven in and out of pectoralis muscle back to base of cone, back to base of pectoralis muscle, back to base of the cone, and tied themselves with 2-0 PDS suture. This was done for 12 o'clock and 1:30 strap. The 3 o'clock strap was sewn over the sternum at 3 o'clock position with 2 Ethibond sutures. Wounds were temporary stapled shut, left side done in identical manner. Then, returned to the right side, took out the connie. Irrigated the wound, marked out lateral dog ears and excised the tissue. Then 10 SONJA was brought out the axilla, sewn in place with 2-0 silk and then the wound was closed after Surya fascia suture was placed of 2-0 Monocryl. closed with 3-0 PDS from lateral to medial, medial to lateral, tied in the vertical meridian breast. After right side was done and left side done in identical manner. The patient was sat up, site for new nipple-areolar complex was marked out, 45 template was used to outline the new site and the areola wassewn with interrupted 4-0 PDS followed by 4-0 PDS running subcuticular. Dressings consisted of tincture of benzoin, Steri-Strips, followed by Esmarch, fluffs, and Bry wrap. The patient tolerated the procedure well and returned to recovery. The amount removed from the right breast was 64 g, left breast a 36 g. INDRA/TALIB Voice ID: [id number] Report ID: [id number] [facility]
[2020-11-08] MEDS ORDERED: ONDANSETRON 4 MG/2 ML VIAL IV ONE (16:00)
== END 2020-11-08 16:15 | disposition home or self-care (01) ==
LOC: OR 08:06
PROVIDERS: ATTEND Specialist
PROC: 0HPT0JZ Removal of Synthetic Substitute from Right Breast, Open Approach (ICD-10-PCS; 2020-11-08)
PROC: 0H0V0ZZ Alteration of Bilateral Breast, Open Approach (ICD-10-PCS; 2020-11-08)
PROC: 0HPU0JZ Removal of Synthetic Substitute from Left Breast, Open Approach (ICD-10-PCS; principal; 2020-11-08 09:00)
DX: N64.81 Ptosis of breast (principal); N62 Hypertrophy of breast
CPT/HCPCS: 19328; 19316; 93005; 85025; 36415; 81025; 88305; 81003; 71046; J2704; J2370; J1580; J2250; J3010 ×2; J1100; J0690 ×2; J7120 ×3; J2405 ×3